=== PATIENT | male | born 1990 | race American Indian/Alaskan Native ===

== ENCOUNTER 2017-12-19 11:46 | Emergency (ER) | payer SELFPAY ==
[2017-12-19 11:54] VITALS: BP 120/81
[2017-12-19] MEDS ORDERED: NORCO 7.5/325 PO ONE (12:50)
[2017-12-19] MEDS ORDERED: ZOFRAN ODT PO ONE (12:50)
--- NOTE | 2017-12-19 12:50 | Emergency Department Report ---
Minor Respiratory - HPI Chief Complaint: Upper Respiratory Infection Stated Complaint: CHILLS,N/V, BODY ACHES, CHEST PAINS Time Seen by Provider: 12/19/17 12:17 Duration: Today Severity: moderate Minor Respiratory: Yes Rhinorrhea, Yes Sore Throat, Yes Able to Tolerate Fluids , Yes Cough (mild), Yes Fever, No Ear Pain, No Sick Contacts, No Hemoptysis, No Chest Pain, No Shortness of Breath Other History: Patient is a 27-year-old Nepalese male who is presenting with very mild cough is nonproductive fever and body aches. Patient states he body aches or aching pain 7 out of 10 in severity. ED Review of Systems ROS: Stated complaint: CHILLS,N/V, BODY ACHES, CHEST PAINS Other details as noted in HPI Comment: All other systems reviewed and negative ED Past Medical Hx - Past Medical History Previous Medical History?: No - Surgical History Past Surgical History?: No - Social History Smoking Status: Current Every Day Smoker Substance Use Type: Alcohol - Medications Home Medications: Home Medications Medication Instructions Recorded Confirmed Last Taken Type ALBUTEROL Inhaler [ProAir HFA 2 puff IH QID PRN #1 inhalation 12/19/17 Unknown Rx Inhaler] HYDROcodone/APAP 5-325 [Crowell 1 each PO Q6HR PRN #12 tablet 12/19/17 Unknown Rx 5/325] Ibuprofen [Motrin] 600 mg PO Q8H PRN #20 tablet 12/19/17 Unknown Rx Ondansetron [Zofran Odt] 4 mg PO Q8HR PRN #10 tab.rapdis 12/19/17 Unknown Rx Minor Respiratory Exam - Exam General: Vital signs noted. No distress. Alert and acting appropriately. HEENT: Yes Pharyngeal Erythema, Yes Moist Mucous Membranes, No Pharyngeal Exudates, No Rhinorrhea, No Conjuctival Injection, No Frontal Tenderness, No Maxillary Tenderness Ear: Neither TM Bulge, Neither TM Erythema, Neither EAC Pain, Neither EAC Discharge Neck: Yes Supple, No Adenopathy Lungs: Yes Good Air Exchange, No Wheezes, No Ronchi, No Stridor, No Cough, No Labored Respirations, No Retractions, No Use of Accessory Muscles, No Other Abnormal Lung Sounds Heart: Yes Regular, No Murmur Abdomen: Yes Normal Bowel Sounds, No Tenderness, No Peritoneal Signs Skin: No Rash, No Edema Neurologic: Alert and oriented, no deficits. Musculoskeletal: Unremarkable. ED Course Vital Signs 12/19/17 11:51 Temperature 100.5 F H Pulse Rate 97 H Respiratory 20 Rate Blood Pressure 120/81 O2 Sat by Pulse 98 Oximetry ED Medical Decision Making - Medical Decision Making Patient is a 27-year-old Nepalese male with flulike symptoms. Patient will be given this was symptomatically from be discharged. Critical care attestation.: If time is entered above; I have spent that time in minutes in the direct care of this critically ill patient, excluding procedure time. ED Disposition Clinical Impression: Flu-like symptoms Disposition: DC-01 TO HOME OR SELFCARE Is pt being admited?: No Does the pt Need Aspirin: No Condition: Stable Instructions: Influenza (ED) Prescriptions: ALBUTEROL Inhaler [ProAir HFA Inhaler] 2 puff IH QID PRN #1 inhalation PRN Reason: Shortness Of Breath HYDROcodone/APAP 5-325 [Crowell 5/325] 1 each PO Q6HR PRN #12 tablet PRN Reason: Pain Ibuprofen [Motrin] 600 mg PO Q8H PRN #20 tablet PRN Reason: Pain Ondansetron [Zofran Odt] 4 mg PO Q8HR PRN #10 tab.rapdis PRN Reason: Nausea Referrals: PRIMARY CARE,MD [Primary Care Provider] - 3-5 Days Forms: Work/School Release Form(ED)
== END 2017-12-19 13:00 | disposition home or self-care (01) ==
LOC: ED 11:46
DX: R05 Cough (principal); R50.9 Fever, unspecified; M79.1 Myalgia; F17.200 Nicotine dependence, unspecified, uncomplicated; Z91.013 Allergy to seafood
CPT/HCPCS: 99282; Q0162

== ENCOUNTER 2018-01-04 15:13 | Emergency (ER) | payer SELFPAY ==
[2018-01-04] MEDS ORDERED: TYLENOL #3 PO ONE (16:11)
[2018-01-04] MEDS ORDERED: BENADRYL IM ONE (16:11)
[2018-01-04] MEDS ORDERED: DECADRON IM ONE (16:11)
--- NOTE | 2018-01-04 16:11 | Emergency Department Report ---
ED Headache HPI - General Chief Complaint: Headache Stated Complaint: HEADACHE Time Seen by Provider: 01/04/18 16:01 Source: patient, family Exam Limitations: no limitations - History of Present Illness Initial Comments: Patient here reports that he is having headache for the last 3 hours. He said he can see in his right eye. And he is also reporting that it hurts when he looks at the light. Reports dizziness. He said he's had similar headache in the past and he uses Goody powder which helped. He said he uses Goody powder today and it did not help. Denies any nausea or vomiting. Denies any head injury or feeling of fainting. Denies any fever or chills or neck pain or stiffness. Denies any sinus congestion or runny nose. Denies any cough. Headache is located to right frontal and radiates to right posterior head. Headache is worse with movement better with rest. He said it's throbbing and then radiates. Patient with elevated blood pressure and reports that several years ago he was prehypertensive but has not checked his blood pressure since Timing/Duration: 1-3 hours, constant, increasing Quality: severe, throbbing Head Injury Location: frontal, parietal Recent Head Trauma: occasional headaches Modifying Factors: improves with: exposure to light, immobilization, movement, rest Associated Symptoms: denies: confusion, fatigue, facial pain, fever/chills, flushing, loss of consciousness, nausea/vomiting, nasal congestion, nasal drainage, numbness in legs/feet, rash, seizures, sinus infection, stiff neck, vision changes, weakness Allergies/Adverse Reactions: Allergies shellfish derived Allergy (Verified 12/19/17 11:54) Unknown Home Medications: Ambulatory Orders ALBUTEROL Inhaler [ProAir HFA Inhaler] 2 puff IH QID PRN #1 inhalation 12/19/17 HYDROcodone/APAP 5-325 [Vernal 5/325] 1 each PO Q6HR PRN #12 tablet 12/19/17 Ibuprofen [Motrin] 600 mg PO Q8H PRN #20 tablet 12/19/17 Ondansetron [Zofran Odt] 4 mg PO Q8HR PRN #10 tab.rapdis 12/19/17 Codeine/Butalbital/ASA/Caffein [Fiorinal with Codeine #3 Cap] 1 each PO Q8H PRN #12 capsule 01/04/18 ED Review of Systems ROS: Stated complaint: HEADACHE Other details as noted in HPI Comment: All other systems reviewed and negative Constitutional: no symptoms reported Eyes: denies: eye pain, eye discharge ENT: denies: throat pain, congestion Respiratory: no symptoms reported Cardiovascular: denies: chest pain, palpitations, dyspnea on exertion, edema, syncope, paroxysmal nocturnal dyspnea Gastrointestinal: denies: abdominal pain, nausea, vomiting, diarrhea Genitourinary: denies: dysuria, frequency, hematuria Musculoskeletal: denies: back pain, joint swelling, arthralgia, myalgia Skin: denies: rash Neurological: headache, other (dizziness). denies: weakness, numbness, paresthesias, confusion, abnormal gait, vertigo Psychiatric: denies: anxiety, depression, auditory hallucinations, visual hallucinations, homicidal thoughts ED Past Medical Hx - Past Medical History Previous Medical History?: Yes Additional medical history: Headaches - Surgical History Past Surgical History?: No - Family History Family history: no significant - Social History Smoking Status: Current Every Day Smoker Substance Use Type: Alcohol - Medications Home Medications: Home Medications Medication Instructions Recorded Confirmed Last Taken Type ALBUTEROL Inhaler [ProAir HFA 2 puff IH QID PRN #1 inhalation 12/19/17 Unknown Rx Inhaler] HYDROcodone/APAP 5-325 [Vernal 1 each PO Q6HR PRN #12 tablet 12/19/17 Unknown Rx 5/325] Ibuprofen [Motrin] 600 mg PO Q8H PRN #20 tablet 12/19/17 Unknown Rx Ondansetron [Zofran Odt] 4 mg PO Q8HR PRN #10 tab.rapdis 12/19/17 Unknown Rx Codeine/Butalbital/ASA/Caffein 1 each PO Q8H PRN #12 capsule 01/04/18 Unknown Rx [Fiorinal with Codeine #3 Cap] ED Physical Exam - General Limitations: No Limitations General appearance: alert, in no apparent distress - Head Head exam: Present: atraumatic, normocephalic, normal inspection, other (normal exam) - Eye Eye exam: Present: normal appearance, PERRL, EOMI, other (positive photophobia) . Absent: scleral icterus, conjunctival injection, nystagmus, periorbital swelling, periorbital tenderness Pupils: Present: normal accommodation - Expanded Eye Exam Expanded Eyelids: Normal Inspection: Left (bilateral) Pupils: Regular, Round: Bilateral, Reactive: Bilateral Sclera/Conjunctival: Normal Inspection: Bilateral Anterior chamber: Normal Inspection: Bilateral Posterior chamber: Normal Inspection: Bilateral Visual acuity (R) = 20/: 25 Visual acuity (L) = 20/: 25 With correction: No - ENT ENT exam: Present: normal exam, normal orophraynx, mucous membranes moist, TM's normal bilaterally, normal external ear exam - Neck Neck exam: Present: normal inspection, full ROM, other (no C-spine tenderness). Absent: tenderness, meningismus, lymphadenopathy, thyromegaly - Respiratory Respiratory exam: Present: normal lung sounds bilaterally. Absent: respiratory distress, chest wall tenderness, accessory muscle use - Cardiovascular Cardiovascular Exam: Present: regular rate, normal rhythm, normal heart sounds. Absent: systolic murmur, diastolic murmur - GI/Abdominal GI/Abdominal exam: Present: soft, normal bowel sounds. Absent: distended, tenderness, guarding, rebound, rigid, organomegaly, mass, bruit, pulsatile mass , hernia - Extremities Exam Extremities exam: Present: normal inspection, full ROM, normal capillary refill , other (in, cyanosis or edema. Positive pulses all extremities and no neurovascular compromise). Absent: tenderness, pedal edema, joint swelling, calf tenderness - Back Exam Back exam: Present: normal inspection, full ROM, other. Absent: tenderness, CVA tenderness (R), CVA tenderness (L), muscle spasm, paraspinal tenderness, vertebral tenderness, rash noted - Neurological Exam Neurological exam: Present: alert, oriented X3, normal gait, reflexes normal. Absent: motor sensory deficit - Expanded Neurological Exam Expanded Neurological exam: Absent: innattentive, memory loss-remote event, memory loss- recent event, ataxia, receptive aphasia, expressive aphasia, total aphasia, tremor, protecting the airway Patient oriented to: Present: person, place, time Speech: Present: fluid speech Cranial nerves: EOM's Intact: Normal, Gag Reflex: Normal, Tongue Deviation: Normal, Nystagmus: Normal, Facial Sensation: Normal Cerebellar function: Romberg: Normal Upper motor neuron: Pronator Drift: Normal, Sensory Extinction: Normal Sensory exam: Upper Extremity Light Touch: Normal, Upper Extremity Temperature: Normal, UE 2 Point Discrimination: Normal, Lower Extremity Light Touch: Normal, Lower Extremity Temperature: Normal, LE 2 Point Discrimination: Normal DTR: bicep (R): 2+, bicep (L): 2+, tricep (R): 2+, tricep (L): 2+, knee (R): 2+ , knee (L): 2+, ankle (R): 2+, ankle (L): 2+ Best Eye Response (Leoti): (4) open spontaneously Best Motor Response (Leoti): (6) obeys commands Best Verbal Response (Pramod): (5) oriented Leoti Total: 15 - Psychiatric Psychiatric exam: Present: normal affect, normal mood - Skin Skin exam: Present: warm, dry, intact, normal color. Absent: rash ED Course Vital Signs 01/04/18 01/04/18 01/04/18 15:17 16:34 18:14 Temperature 98.4 F 98.1 F Pulse Rate 76 75 Respiratory 16 14 16 Rate Blood Pressure 144/106 Blood Pressure 161/88 [Left] O2 Sat by Pulse 95 99 Oximetry - Reevaluation(s) Reevaluation #1: 01/04/18 18:10 Patient given Benadryl 50 mg IM, Decadron 10 mg IM and Tylenol No. 3 2 tablets by mouth for headache which relieved his headache completely. ED Medical Decision Making - Radiology Data Radiology results: report reviewed CT scan of the head revealed no extracranial or intracranial abnormalities - Medical Decision Making ED course: Patient presented with headache that's been episodic. These also have elevated blood pressure with this headache. Patient neurological exam is normal and no head trauma noted. CT scan of the head revealed no intracranial or extracranial abnormality. The patient was given Tylenol No. 3, Benadryl 50 mg IM and Decadron 10 mg IM. Medication relieved headache. I discussed the patient he will need to follow up with a neurologist initially for evaluation. I also discussed with him he needs to schedule an appointment with the outside [facility] as he does not have a primary care physician for primary care visit to include evaluated and his blood pressure. Patient discharged home in stable condition with prescription for Fioricet. Critical care attestation.: If time is entered above; I have spent that time in minutes in the direct care of this critically ill patient, excluding procedure time. ED Disposition Clinical Impression: Elevated blood-pressure reading without diagnosis of hypertension Nonintractable episodic headache Qualifiers: Headache type: unspecified Qualified Code(s): R51 - Headache Disposition: DC-01 TO HOME OR SELFCARE Is pt being admited?: No Does the pt Need Aspirin: No Condition: Stable Instructions: Acute Headache (ED), Hypertension (ED), How to Take a Blood Pressure (ED) Additional Instructions: Please take your blood pressure and keep a log to take your primary care visit with you Increase your fluid intake to include water. Please exercise at least 3-4 times a day for 45 minutes at a time Follow discharge instructions on healthy heart diet Follow-up with neurologist as instructed Prescriptions: Codeine/Butalbital/ASA/Caffein [Fiorinal with Codeine #3 Cap] 1 each PO Q8H PRN #12 capsule PRN Reason: Headache Referrals: PRIMARY CARE, [Primary Care Provider] - 2-3 Days MACEY ESPINOZA MD [Staff Physician] - 01/06/18 [facility] [Outside] - 2-3 Days Forms: Work/School Release Form(ED)
--- NOTE | 2018-01-04 17:37 | Cat Scan Report ---
FINAL REPORT EXAM: CT HEAD/BRAIN WO CON HISTORY: headache, dizziness TECHNIQUE: CT of the head was performed without intravenous contrast. PRIORS: None. FINDINGS: The ventricles are normal in shape and position. The ventricles are nondilated. No intracranial hemorrhage, mass, mass effect, midline shift or evidence of acute ischemic infarct. The basilar cisterns are patent. The paranasal sinuses are clear. The extracranial soft tissues demonstrate no abnormality. The calvarium is intact. The orbits are intact. The mastoid air cells are clear. IMPRESSION: No acute intracranial abnormality.
[2018-01-04 18:15] VITALS: BP 161/88
== END 2018-01-04 18:49 | disposition home or self-care (01) ==
LOC: ED 15:13
DX: R51 Headache (principal); R03.0 Elevated blood-pressure reading, without diagnosis of hypertension; F17.200 Nicotine dependence, unspecified, uncomplicated
CPT/HCPCS: 70450; 96372; 99283; J1100; J1200